=== PATIENT | female | born 1950 | race Caucasian/White ===

== ENCOUNTER 2024-04-18 10:24 | Emergency (ER) | payer OTHER, MEDICARE ==
[~2024-04-18] VITALS: Ht 167.6 cm; Wt 68.0 kg
[~2024-04-18 10:24] MED LIST: FISH OIL + D31 EACH PO; LEVSOD100 PO; LEVSOD75 PO; LEVSOD88 PO; PRAV10 PO; Vistaril50 MG PO
== END 2024-04-18 12:27 | disposition home or self-care (01) ==
LOC: ER 10:24
DX: S52.501A Unspecified fracture of the lower end of right radius, initial encounter for closed fracture (principal); E03.9 Hypothyroidism, unspecified; E78.5 Hyperlipidemia, unspecified; W01.0XXA Fall on same level from slipping, tripping and stumbling without subsequent striking against object, initial encounter; Z79.899 Other long term (current) drug therapy; Z88.1 Allergy status to other antibiotic agents
CPT/HCPCS: 29125; 73110; 99283-25